=== PATIENT | male | born 1985 | race Caucasian/White ===

== ENCOUNTER 2018-06-02 15:32 | Emergency (ER) | payer OTHER ==
[~2018-06-02] VITALS: Ht 170.2 cm; Wt 79.5 kg
[2018-06-02 15:52] VITALS: BP 131/89
[2018-06-02] MEDS ORDERED: LEVE500T53 PO (15:56)
[2018-06-02] MEDS ORDERED: LIB5 PO (15:56)
[2018-06-02] MEDS ORDERED: KETOROLAC TROMETHAMINE 60 MG/2 ML VIAL IM ONE (16:30)
[2018-06-02] MEDS ORDERED: CYCLOBENZAPRINE HCL 10 MG TABLET PO ONE (16:30)
== END 2018-06-02 17:35 | disposition home or self-care (01) ==
LOC: EMS 15:33
DX: M25.551 Pain in right hip (principal); F10.20 Alcohol dependence, uncomplicated; Z48.02 Encounter for removal of sutures; Z79.899 Other long term (current) drug therapy
CPT/HCPCS: 73502; 96372; 99283; J1885

== ENCOUNTER 2018-06-08 17:23 | Emergency (ER) | payer OTHER ==
[~2018-06-08] VITALS: Ht 175.3 cm; Wt 84.1 kg
[~2018-06-08 17:23] MED LIST: LEVE500T53 PO; LIB5 PO
[2018-06-08] MEDS ORDERED: KETOROLAC TROMETHAMINE 30 MG/ML VIAL IM ONE (18:00)
[2018-06-08] MEDS ORDERED: ACETAMINOPHEN 500 MG TABLET PO ONE (18:00)
[2018-06-08 18:47] LABS: INFLUENZA TYPE A NEGATIVE FOR TYPE A (NEGATIVE); INFLUENZA TYPE B NEGATIVE FOR TYPE B (NEGATIVE)
[2018-06-08 18:56] VITALS: BP 118/68
== END 2018-06-08 19:09 | disposition home or self-care (01) ==
LOC: EMS 17:24
DX: J06.9 Acute upper respiratory infection, unspecified (principal); F17.210 Nicotine dependence, cigarettes, uncomplicated
CPT/HCPCS: 71046; 87804; 96372; 99284; 99406; J1885